=== PATIENT | female | born 1965 | race Caucasian/White ===

== ENCOUNTER 2024-04-23 09:10 | Outpatient (RCR) | payer BC, SELFPAY ==
[2024-04-23] MEDS: RECLAST 100 IV (09:38)
[2024-04-23 09:46] VITALS: BP 126/82
== END 2024-04-26 09:28 | disposition home or self-care (01) ==
LOC: OID 09:10
PROVIDERS: ATTENDING PHYSICIAN Internal Medicine; FAMILY PHYSICIAN Family Medicine
DX: M81.0 Age-related osteoporosis without current pathological fracture (principal)
CPT/HCPCS: 96365; J3489